=== PATIENT | male | born 1990 | race Two or more races ===

== ENCOUNTER 2017-11-25 10:00 | Emergency (ER) | payer OTHER ==
[~2017-11-25] VITALS: Ht 167.6 cm; Wt 68.0 kg
[~2017-11-25 10:00] MED LIST: ACEBUTCAFT PO; ALBU90OI INH; AMPDEX10CR PO; CEPH500 PO; Crutch1 EACH MISC; ESCI5 PO; GABA600 PO; HYDR1TAB94 PO; LAMICTAL ODT (1 EAC1 PO; LAMO5; LORA.5 PO; PROP10 PO; RANI150 PO; SULTRIDS PO; VENL37.5ER PO
== END 2017-11-25 10:30 | disposition home or self-care (01) ==
LOC: ER 10:00
DX: H61.891 Other specified disorders of right external ear (principal); Z79.899 Other long term (current) drug therapy; F41.9 Anxiety disorder, unspecified; F17.210 Nicotine dependence, cigarettes, uncomplicated
CPT/HCPCS: 99281

== ENCOUNTER → 2017-12-14 | Outpatient (CLI) | payer OTHER ==
[2017-12-14 14:02] LABS: U Amphetamine Screen DETECTED; U Barbituate Screen Not Detected; U Benzodiazapine Screen Not Detected; U Buprenorphine Screen Not Detected; U Cannabinoids Screen Not Detected; U Cocaine Screen Not Detected; U Methadone Screen Not Detected; U Methamphetamine Screen Not Detected; U Opiates Screen Not Detected; U Oxycodone Screen Not Detected; U Phencyclidine Screen Not Detected; U Propoxyphene Screen Not Detected
== END ==
LOC: LAB SHORT 12:56 → LAB 12:56
PROVIDERS: Psychiatry & Neurology Psychiatry
DX: F90.0 Attention-deficit hyperactivity disorder, predominantly inattentive type (principal); Z79.899 Other long term (current) drug therapy

== ENCOUNTER → 2018-07-29 | Outpatient (CLI) | payer OTHER ==
[2018-07-29 14:53] LABS: U Amphetamine Screen DETECTED; U Barbituate Screen Not Detected; U Benzodiazapine Screen Not Detected; U Buprenorphine Screen Not Detected; U Cannabinoids Screen Not Detected; U Cocaine Screen Not Detected; U Methadone Screen Not Detected; U Methamphetamine Screen Not Detected; U Opiates Screen Not Detected; U Oxycodone Screen Not Detected; U Phencyclidine Screen Not Detected; U Propoxyphene Screen Not Detected
== END | disposition home or self-care (01) ==
LOC: LAB 14:16 → LAB SHORT 14:16
PROVIDERS: Psychiatry & Neurology Psychiatry
DX: Z51.81 Encounter for therapeutic drug level monitoring (principal); Z79.899 Other long term (current) drug therapy

== ENCOUNTER 2019-01-01 14:51 | Emergency (ER) | payer OTHER ==
[~2019-01-01] VITALS: Ht 157.5 cm; Wt 62.6 kg
[2019-01-01] MEDS ORDERED: ERYT1OIN RIGHTEYE (15:24)
== END 2019-01-01 15:30 | disposition home or self-care (01) ==
LOC: ER 14:51
DX: S05.01XA Injury of conjunctiva and corneal abrasion without foreign body, right eye, initial encounter (principal); I10 Essential (primary) hypertension; F41.9 Anxiety disorder, unspecified; F17.210 Nicotine dependence, cigarettes, uncomplicated; X58.XXXA Exposure to other specified factors, initial encounter
CPT/HCPCS: 99283

== ENCOUNTER → 2019-05-10 | Outpatient (CLI) | payer OTHER ==
[~2019-05-10] MED LIST changes: +ERYT1OIN RIGHTEYE
[2019-05-10 17:15] LABS: U Amphetamine Screen DETECTED; U Barbituate Screen Not Detected; U Benzodiazapine Screen Not Detected; U Buprenorphine Screen Not Detected; U Cannabinoids Screen Not Detected; U Cocaine Screen Not Detected; U Methadone Screen Not Detected; U Methamphetamine Screen Not Detected; U Opiates Screen Not Detected; U Oxycodone Screen Not Detected; U Phencyclidine Screen Not Detected; U Propoxyphene Screen Not Detected
== END | disposition home or self-care (01) ==
LOC: LAB SHORT 14:41 → LAB 14:41
PROVIDERS: Psychiatry & Neurology Psychiatry
DX: F90.9 Attention-deficit hyperactivity disorder, unspecified type (principal); Z79.899 Other long term (current) drug therapy

== ENCOUNTER 2020-11-03 10:39 | Emergency (ER) | payer OTHER ==
[~2020-11-03] VITALS: Ht 160 cm; Wt 70.3 kg
[~2020-11-03 10:39] MED LIST changes: +Bactrim Ds Tab1 EACH PO
[2020-11-03] MEDS ORDERED: PROP60 (11:18)
[2020-11-03] MEDS ORDERED: VENL25 (11:18)
[2020-11-03] MEDS ORDERED: KETO10 PO (13:22)
[2020-11-03] MEDS ORDERED: Robaxin-750750 MG PO (13:22)
== END 2020-11-03 13:46 | disposition home or self-care (01) ==
LOC: ER 10:39
DX: M54.6 Pain in thoracic spine (principal); F17.210 Nicotine dependence, cigarettes, uncomplicated; Z79.899 Other long term (current) drug therapy
CPT/HCPCS: 72070; 99283-25; A9270

== ENCOUNTER 2021-10-21 12:43 | Emergency (ER) | payer OTHER ==
[~2021-10-21] VITALS: Ht 162.6 cm; Wt 69.8 kg
[~2021-10-21 12:43] MED LIST changes: +KETO10 PO; +PROP60; +Robaxin-750750 MG PO; +VENL25
[2021-10-21] MEDS ORDERED: IBU800 M1 PO (14:18)
[2021-10-21] MEDS ORDERED: NEURONTIN300 MG PO (14:18)
[2021-10-21] MEDS ORDERED: ESCI10 (14:18)
[2021-10-21] MEDS ORDERED: PROPRANOLOL HCL80 MG PO (14:18)
[2021-10-21] MEDS ORDERED: METPRE4DP PO (14:28)
== END 2021-10-21 14:34 | disposition home or self-care (01) ==
LOC: ER 12:43
DX: M54.14 Radiculopathy, thoracic region (principal); F17.210 Nicotine dependence, cigarettes, uncomplicated
CPT/HCPCS: 72070; 99283-25

== ENCOUNTER 2022-06-13 15:02 | Emergency (ER) | payer OTHER ==
[~2022-06-13] VITALS: Ht 160 cm; Wt 69.8 kg
[~2022-06-13 15:02] MED LIST changes: +ESCI10; +IBU800 M1 PO; +METPRE4DP PO; +NEURONTIN300 MG PO; +PROPRANOLOL HCL80 MG PO
[2022-06-13] MEDS ORDERED: AMOX500 PO (15:58)
== END 2022-06-13 16:01 | disposition home or self-care (01) ==
LOC: ER 15:02
DX: K04.7 Periapical abscess without sinus (principal); F17.210 Nicotine dependence, cigarettes, uncomplicated
CPT/HCPCS: 99282

== ENCOUNTER 2023-09-06 16:34 | Emergency (ER) | payer OTHER ==
[~2023-09-06] VITALS: Ht 157.5 cm; Wt 67.1 kg
[~2023-09-06 16:34] MED LIST changes: +AMOX500 PO
[2023-09-06 16:49] VITALS: BP 140/82
== END 2023-09-06 17:35 | disposition home or self-care (01) ==
LOC: ER 16:34
DX: K08.89 Other specified disorders of teeth and supporting structures (principal); F17.210 Nicotine dependence, cigarettes, uncomplicated
CPT/HCPCS: 99282; A9270; J1885

== ENCOUNTER 2024-02-01 13:05 | Emergency (ER) | payer OTHER ==
[~2024-02-01] VITALS: Ht 160 cm; Wt 68.0 kg
[2024-02-01 13:21] VITALS: BP 135/87
== END 2024-02-01 13:28 | disposition home or self-care (01) ==
LOC: ER 13:05
DX: F41.9 Anxiety disorder, unspecified (principal); F17.210 Nicotine dependence, cigarettes, uncomplicated
CPT/HCPCS: 99282

== ENCOUNTER 2024-05-25 14:14 | Emergency (ER) | payer OTHER ==
[~2024-05-25] VITALS: Ht 160 cm; Wt 69.8 kg
[2024-05-25 14:25] VITALS: BP 145/63
[2024-05-25] MEDS ORDERED: CEPH500 PO (14:29)
== END 2024-05-25 14:30 | disposition home or self-care (01) ==
LOC: ER 14:14
DX: L03.113 Cellulitis of right upper limb (principal); F17.210 Nicotine dependence, cigarettes, uncomplicated
CPT/HCPCS: 99282

== ENCOUNTER 2025-01-14 14:10 | Emergency (ER) | payer OTHER ==
[~2025-01-14] VITALS: Ht 160 cm; Wt 70.3 kg
[2025-01-14 15:17] VITALS: BP 127/99
[2025-01-14] MEDS ORDERED: RECTICARE30 GM PR (15:33)
[2025-01-14] MEDS ORDERED: Preparation H26 GM PR (15:33)
== END 2025-01-14 16:47 | disposition home or self-care (01) ==
LOC: ER 14:10
DX: K64.4 Residual hemorrhoidal skin tags (principal); Z79.2 Long term (current) use of antibiotics; F17.210 Nicotine dependence, cigarettes, uncomplicated
CPT/HCPCS: 99282

== ENCOUNTER 2025-04-17 14:59 | Emergency (ER) | payer OTHER ==
[~2025-04-17] VITALS: Ht 160 cm; Wt 69.0 kg
[~2025-04-17 14:59] MED LIST changes: +Preparation H26 GM PR; +RECTICARE30 GM PR
[2025-04-17 15:23] LABS: BASOPHILS ABSOLUTE AUTO 0.02 K/mm3 (0.00-0.23); BASOPHILS PERCENT AUTO 0 % (0-2); EOSINOPHILS ABSOLUTE AUTO 0.01 K/mm3 (0.00-0.68); EOSINOPHILS PERCENT AUTO 0 % (0-6); Hematocrit 45.8 % (37.0-53.0); Hemoglobin 15.0 g/dL (13.5-17.5); IMMATURE GRAN ABSOLUTE AUTO 0.01 K/mm3 (0.00-0.10); IMMATURE GRAN PERCENT AUTO 0 % (0-1); LYMPHOCYTES ABSOLUTE AUTO 0.95 K/mm3 (0.84-5.20); LYMPHOCYTES PERCENT AUTO 19 % (21-46); MONOCYTES ABSOLUTE AUTO 0.27 K/mm3 (0.16-1.47); MONOCYTES PERCENT AUTO 6 % (4-13); Mean Corpuscular HGB Conc 32.8 g/dL (31.5-36.5); Mean Corpuscular Volume 85 fL (80-100); NEUTROPHILS ABSOLUTE AUTO 3.64 K/mm3 (1.96-9.15); NEUTROPHILS PERCENT AUTO 74 % (41-73); NRBC ABSOLUTE 0.00 K/mm3 (0.00-0.02); NRBC Auto 0.0 /100 WBC (0.0-0.2); Platelet Count 309 K/mm3 (150-400); RDW Coefficient Variation 12.7 % (11.7-14.2); RDW Standard Deviation 39.2 fL (35.1-46.3)
[2025-04-17 16:12] LABS: Alanine Aminotransfer (ALT/SGP 24.0 U/L (12-78); Albumin, Blood 4.1 g/dL (3.4-5.0); Albumin/Globulin Ratio 1.2 (0.8-1.8); Anion Gap 6.0 mmol/L (3-11); Aspartate Aminotrans (AST/SGOT 19.0 U/L (12-37); Bilirubin, Total 0.7 mg/dL (0.1-1.0); Blood Urea Nitrogen 10.0 mg/dL (8-24); CO2, Blood 28.0 mmol/L (21-32); Calcium, Blood 9.0 mg/dL (8.5-10.1); Chloride, Blood 107.0 mmol/L (98-108); Creatinine, Blood 0.91 mg/dL (0.60-1.20); Globulin, Blood 3.5 g/dL (2.2-4.0); Glucose, Blood 118.0 mg/dL (70-99); Potassium, Blood 3.9 mmol/L (3.5-5.5); Sodium, Blood 137.0 mmol/L (136-145); Total Protein, Blood 7.6 g/dL (6.4-8.2)
[2025-04-17 18:45] VITALS: BP 148/85
[2025-04-17] MEDS ORDERED: GABAPENTIN600 MG PO (18:46)
[2025-04-17] MEDS ORDERED: EFFEXOR XR37.5 MG PO (18:46)
[2025-04-17] MEDS ORDERED: Amphetamine Sal20 MG PO (18:46)
== END 2025-04-17 21:01 | disposition home or self-care (01) ==
LOC: ER 14:59
PROVIDERS: Student in an Organized Health Care Education/Training Program
DX: R10.33 Periumbilical pain (principal); R06.00 Dyspnea, unspecified; F17.210 Nicotine dependence, cigarettes, uncomplicated; Z79.899 Other long term (current) drug therapy
CPT/HCPCS: 71046; 80053; 84484; 85025; 93005; 93010; 99284-25

== ENCOUNTER 2025-05-10 08:34 | Emergency (ER) | payer OTHER ==
[~2025-05-10] VITALS: Ht 160 cm; Wt 68.5 kg
[~2025-05-10 08:34] MED LIST changes: +Amphetamine Sal20 MG PO; +EFFEXOR XR37.5 MG PO; +GABAPENTIN600 MG PO
[2025-05-10 09:38] VITALS: BP 150/90
== END 2025-05-10 10:12 | disposition home or self-care (01) ==
LOC: ER 08:34
DX: S80.212A Abrasion, left knee, initial encounter (principal); F17.210 Nicotine dependence, cigarettes, uncomplicated; V89.2XXA Person injured in unspecified motor-vehicle accident, traffic, initial encounter
CPT/HCPCS: 73562-LT; 99283-25